=== PATIENT | female | born 1965 | race Caucasian/White ===

== ENCOUNTER 2016-08-01 14:10 | Inpatient (IN) | payer BC ==
[2016-08-01 17:17] VITALS: BMI 32.1
--- NOTE | 2016-08-01 17:27 | HP ---
COWS - Scale Resting Pulse: 1= MO 81-100 Sweatin= Chills/Flushing Restless Observation: 1= Difficult to Sit Still Pupil Size: 0= Normal to Room Light Bone or Joint Aches: 2= Severe Diffuse Aches (MS TREATED WITH ATIVAN PRN) Runny Nose/ Eye Tearin= Runny Nose/Eyes GI Upset > 30mins: 1= Stomach Cramp Tremor Observation: 2= Slight Tremor Visible Yawning Observation: 0= None Anxiety or Irritability: 2=Irritable/Anxious Goose Flesh Skin: 3=Piloerection COWS Score: 15 CIWA Score - CIWA Score Nausea/Vomitin-Mild Nausea/No Vomiting Muscle Tremors: 4-Moderate,w/Arms Extend Anxiety: 4-Mod. Anxious/Guarded Agitation: 4-Moderately Restless Paroxysmal Sweats: 1-Minimal Palms Moist Orientation: 1-Uncertain about Date Tacttile Disturbances: 0-None Auditory Disturbances: 0-None Visual Disturbances: 0-None Headache: 0-None Present CIWA-Ar Total Score: 15 Admission [facility] Chief Complaint: WITHDRAWAL SX Allergies/Adverse Reactions: Allergies Allergy/AdvReac Type Severity Reaction Status Date / Time No Known Allergies Allergy Verified 06/13/16 20:58 History of Present Illness: 51 YEARS OLD FEMALE WITH LONG HISTORY OF ALCOHOL OPIATE NICOTINE DEPENDENCE, HAS M.S AND IBS AND DEPRESSION IS ADMITTED TO DETOX Exam Limitations: No Limitations - Ebola screening Have you traveled outside of the country in the last 21 days: No Have you had contact with anyone from an Ebola affected area: No Have you been sick,other than usual withdrawal symptoms: No Do you have a fever: No - Review of Systems Constitutional: Chills, Changes in sleep, Weight Stable EENT: reports: No Symptoms Reported Respiratory: reports: No Symptoms reported Cardiac: reports: No Symptoms Reported GI: reports: Constipated, Nausea, Poor Fluid Intake, Abdominal cramping : reports: No Symptoms Reported Musculoskeletal: reports: Back Pain, Joint Pain, Muscle Pain, Neck Pain Integumentary: reports: No Symptoms Reported Neuro: reports: Tremors Endocrine: reports: No Symptoms Reported Hematology: reports: No Symptoms Reported Psychiatric: reports: Judgement Intact, Depressed Other Systems: Reviewed and Negative Patient History - Patient Medical History Hx Anemia: No Hx Asthma: No Hx Chronic Obstructive Pulmonary Disease (COPD): No Hx Cancer: No Hx Cardiac Disorders: No Hx Congestive Heart Failure: No Hx Hypertension: No Hx Hypercholesterolemia: No Hx Pacemaker: No HX Cerebrovascular Accident: No Hx Seizures: No Hx Dementia: No Hx Diabetes: No Hx Gastrointestinal Disorders: No Hx Liver Disease: No Hx Genitourinary Disorders: No Hx Sexually Transmitted Disorders: No Hx Renal Disease (ESRD): No Hx Thyroid Disease: No Hx Human Immunodeficiency Virus (HIV): No (negative) Hx Hepatitis C: No (negtive) Hx Depression: Yes Hx Suicide Attempt: No (denies) Hx Bipolar Disorder: No Hx Schizophrenia: No - Patient Surgical History Past Surgical History: Yes Hx Neurologic Surgery: No Hx Cataract Extraction: No Hx Cardiac Surgery: No Hx Lung Surgery: No Hx Breast Surgery: No Hx Breast Biopsy: No Hx Abdominal Surgery: No Hx Appendectomy: No Hx Cholecystectomy: No Hx Genitourinary Surgery: No Hx Section: Yes (x3) Hx Orthopedic Surgery: Yes (s/p l. ankle fracture LEFT FOOT) Hx Hysterectomy: No Other Surgical History: s/p tube ligation. 1986 Anesthesia Reaction: No - PPD History Previous Implant?: Yes Documented Results: Negative w/proof Implanted On Prior [facility] Admission?: Yes Date: 05/16/16 Results: 0 MM PPD to be Administered?: No - Reproductive History Patient is a Female of Child Bearing Age (11 -55 yrs old): Yes Last Menstrual Period: 08/23/14 Patient : No - Smoking Cessation Smoking history: Current every day smoker Have you smoked in the past 12 months: Yes Aproximately how many cigarettes per day: 15 Cigars Per Day: 0 Hx Chewing Tobacco Use: No Initiated information on smoking cessation: Yes 'Breaking Loose' booklet given: 08/01/16 - Substance & Tx. History Hx Alcohol Use: Yes Hx Substance Use: Yes Substance Use Type: Alcohol, Heroin, Opiates, Tranquilizers Hx Substance Use Treatment: Yes - Substances Abused Alcohol Route: Oral Frequency: Daily Amount used: 3 [place] Age of first use: 15 Date of Last Use: 07/31/16 Heroin Route: Inhalation Frequency: Daily Amount used: 100$ Age of first use: 48 Date of Last Use: 07/31/16 Family Disease History - Family Disease History Family Disease History: Other: Father (ESTRANGED) Admission Physical Exam BHS - Vital Signs Vital Signs: Vital Signs - 24 hr 08/01/16 17:10 Temperature 95.5 F L Pulse Rate 98 H Respiratory 18 Rate Blood Pressure 118/86 - Physical General Appearance: Yes: Nourished, Appropriately Dressed, Mild Distress, Tremorous, Irritable, Sweating, Anxious HEENTM: Yes: Hearing grossly Normal, Normal ENT Inspection, Normocephalic, Normal Voice Respiratory: Yes: Chest Non-Tender, Lungs Clear, Normal Breath Sounds, No Respiratory Distress, No Accessory Muscle Use Neck: Yes: Supple, Trachea in good position Breast: Yes: Breasts Symetrical Cardiology: Yes: Regular Rhythm, Regular Rate, S1, S2 Abdominal: Yes: Non Tender, Soft Genitourinary: Yes: Within Normal Limits Back: Yes: Normal Inspection Musculoskeletal: Yes: full range of Motion, Gait Steady, Muscle weakness (MS USE CANE AT HOME PATIENT STATES THAT SHE DOES NOT NEED CANE RECENT X MONTHS) Extremities: Yes: Normal Inspection, Normal Range of Motion, Non-Tender, Tremors Neurological: Yes: Alert, Motor Strength 5/5, Normal Response, Depressed Affect Integumentary: Yes: Warm Lymphatic: Yes: Within Normal Limits - Diagnostic (1) Alcohol dependence with uncomplicated withdrawal Current Visit: Yes Status: Acute (2) Nicotine dependence Current Visit: Yes Status: Acute Qualifiers: Nicotine product type: cigarettes Substance use status: in withdrawal Qualified Code(s): F17.213 - Nicotine dependence, cigarettes, with withdrawal (3) Peripheral neuropathy Current Visit: Yes Status: Acute Qualifiers: Peripheral neuropathy type: polyneuropathy associated with underlying disease Qualified Code(s): G63 - Polyneuropathy in diseases classified elsewhere Comment: NEURONTIN (4) Opioid dependence with withdrawal Current Visit: Yes Status: Acute (5) Multiple sclerosis Current Visit: Yes Status: Acute Comment: FLEXERIL (6) CHF (congestive heart failure) Current Visit: Yes Status: Acute Qualifiers: Congestive heart failure type: combined Congestive heart failure chronicity: chronic Qualified Code(s): I50.42 - Chronic combined systolic (congestive) and diastolic (congestive) heart failure Comment: LASIX (7) IBS (irritable bowel syndrome) Current Visit: Yes Status: Acute Qualifiers: Irritable bowel syndrome type: with constipation Qualified Code(s): K58.9 - Irritable bowel syndrome without diarrhea Comment: LITO Cleared for Admission [facility] - Detox or Rehab [facility] Level of Care: Medically Managed Detox Regimen/Protocol: Methadone/Librium [facility] Breath Alcohol Content Breath Alcohol Content: 0 Urine Pregancy Test - Result Urine Test Results: Negative- NO Line Present Urine Drug Screen - Results Drug Screen Negative: No Urine Drug Screen Results: OPI-Opiates, BZO-Benzodiazepines, MTD-Methadone, OXY- Oxycodone
[2016-08-01] MEDS ORDERED: NICOTINE POLACRILEX 2 MG GUM BUC PRN (17:41)
[2016-08-01] MEDS ORDERED: MAGNESIUM HYDROX 2400MG/30ML ORAL SUSPENSION 30 ML CUP PO PRN (17:41)
[2016-08-01] MEDS ORDERED: MAG HYDROX/AL HYDROX/SIMETH 30 ML UNIT-DOSE CUP PO PRN (17:41)
[2016-08-01] MEDS ORDERED: IBUPROFEN 400 MG TABLET (FP) PO PRN (17:41)
[2016-08-01] MEDS ORDERED: MAGNESIUM CITRATE 300 ML BOTTLE PO PRN (17:41)
[2016-08-01] MEDS ORDERED: MENTHOL/PHENOL 1 EACH UD MM PRN (17:41)
[2016-08-01] MEDS ORDERED: LOPERAMIDE HCL 2 MG CAPSULE PO PRN (17:41)
[2016-08-01] MEDS ORDERED: P-EPHED 60MG/TRIPROLIDI 2.5MG TABLET PO PRN (17:41)
[2016-08-01] MEDS ORDERED: guaiFENesin/D-METHORPHAN HB 10 ML UNIT-DOSE CUPS PO PRN (17:41)
[2016-08-01] MEDS ORDERED: ACETAMINOPHEN 325 MG TABLET (FP) PO PRN (17:41)
[2016-08-01] MEDS ORDERED: METHADONE HCL 10 MG TABLET (FOR DETOX USE ONLY) PO ONE ×2 (18:45→23:00)
--- NOTE | 2016-08-01 19:06 | PN ---
S Progress Note Note: RECEIVED PHARMACY CALL [facility] DOES NOT [facility] PATIENT HAS HER OWN LINZESS PROVIDER ORDERED PATIENT'S OWN LINZESS CONTINUE DETOX
[2016-08-01] MEDS: chlordiazePOXIDE HCL 25 MG CAPSULE PO PRN (19:19)
[2016-08-01] MEDS ORDERED: diphenhydrAMINE HCL 50 MG CAPSULE PO PRN (22:00)
[2016-08-01] MEDS ORDERED: THIAMINE HCL 100 MG TABLET (FP) PO SCH (22:00)
[2016-08-01] MEDS: CYCLOBENZAPRINE HCL 10 MG TABLET (FP) PO PRN (22:07)
[2016-08-01] MEDS: GABAPENTIN 300 MG CAPSULE (FP) PO SCH (22:08)
[2016-08-01] MEDS: chlordiazePOXIDE HCL 25 MG CAPSULE PO SCH (22:08)
[2016-08-01 22:51] LABS: URINE APPEARANCE CLOUDY; URINE BILIRUBIN NEGATIVE (NEGATIVE); URINE BLOOD NEGATIVE (NEGATIVE); URINE COLOR YELLOW; URINE GLUCOSE (UA) NEGATIVE (NEGATIVE); URINE KETONE NEGATIVE (NEGATIVE); URINE LEUK ESTERASE NEGATIVE (NEGATIVE); URINE NITRITE NEGATIVE (NEGATIVE); URINE PROTEIN NEGATIVE (NEGATIVE); URINE UROBILINOGEN NEGATIVE E.U./dl (0.2-1.0)
[2016-08-02] MEDS: chlordiazePOXIDE HCL 25 MG CAPSULE PO SCH ×3 (05:23→17:50)
[2016-08-02] MEDS: GABAPENTIN 300 MG CAPSULE (FP) PO SCH ×2 (05:24→13:05)
[2016-08-02] MEDS ORDERED: BISACODYL 5 MG TABLET.DR (FP) PO ONE (09:24)
[2016-08-02] MEDS ORDERED: NICOTINE 21 MG/24 HOURS TOPICAL PATCH TD SCH (10:00)
[2016-08-02] MEDS ORDERED: PRENATAL VITAMINS W/ FOLIC ACID TABLET (FP) PO SCH (10:00)
[2016-08-02] MEDS ORDERED: FUROSEMIDE 20 MG TABLET (FP) PO SCH (10:00)
[2016-08-02] MEDS ORDERED: PATIENT'S OWN MEDICATION (NON-FORMULARY) (Linaclotide [Linzess] 145 MCG) PO SCH (10:00)
[2016-08-02] MEDS ORDERED: METHADONE HCL 10 MG TABLET (FOR DETOX USE ONLY) PO SCH (10:00)
[2016-08-02] MEDS: CYCLOBENZAPRINE HCL 10 MG TABLET (FP) PO PRN (10:06)
--- NOTE | 2016-08-02 10:11 | PN ---
S CIWA - CIWA Score Nausea/Vomitin Muscle Tremors: 3 Anxiety: 3 Agitation: 3 Paroxysmal Sweats: 1-Minimal Palms Moist Orientation: 0-Oriented Tacttile Disturbances: 1-Very Mild Itch/Numbness Auditory Disturbances: 1-Very Mild Visual Disturbances: 1-Very Mild Sensitivity Headache: 2-Mild CIWA-Ar Total Score: 18 BHS COWS - Scale Resting Pulse: 0= [place] 80 or Below Sweatin= Chills/Flushing Restless Observation: 3= Extraneous Movement Pupil Size: 1= Pupils >than Normal Bone or Joint Aches: 2= Severe Diffuse Aches Runny Nose/ Eye Tearin= Runny Nose/Eyes GI Upset > 30mins: 2= Nausea/Diarrhea Tremor Observation of Outstretched Hands: 2= Slight Tremor Visible Yawning Observation: 1= 1-2x During Session Anxiety or Irritability: 2=Irritable/Anxious Goose Flesh Skin: 0=Smooth Skin COWS Score: 16 S Progress Note (SOAP) Subjective: ALERT,IRRITABLE,ANXIOUS,INTERRUPTED SLEEP,CONSTIPATION,PAIN IN THE BODY AND BACK ,TREMOR Objective: 08/02/16 10:09 Vital Signs Temperature 98.6 F 08/02/16 09:58 Pulse Rate 79 08/02/16 09:58 Respiratory Rate 16 08/02/16 09:58 Blood Pressure 129/76 08/02/16 09:58 O2 Sat by Pulse Oximetry (%) EKG SINUS TACHYCARDIA 103/MIN 08/02/16 10:10 Laboratory Last Values Urine Color Yellow 08/01/16 22:00 Urine Appearance Cloudy 08/01/16 22:00 Urine pH 7.0 (5.0-8.0) 08/01/16 22:00 Ur Specific [place] 1.014 (1.001-1.035) 08/01/16 22:00 Urine Protein Negative (NEGATIVE) 08/01/16 22:00 Urine Glucose (UA) Negative (NEGATIVE) 08/01/16 22:00 Urine Ketones Negative (NEGATIVE) 08/01/16 22:00 Urine Blood Negative (NEGATIVE) 08/01/16 22:00 Urine Nitrite Negative (NEGATIVE) 08/01/16 22:00 Urine Bilirubin Negative (NEGATIVE) 08/01/16 22:00 Urine Urobilinogen Negative E.U./dl (0.2-1.0) 08/01/16 22:00 Ur Leukocyte Esterase Negative (NEGATIVE) 08/01/16 22:00 LABS PENDING Assessment: 08/02/16 10:10 WITHDRAWAL SYMPTOM Plan: CONTINUE DETOX
[2016-08-02 10:49] LABS: MCH 28.4 pg (25.7-33.7); MEAN CELL VOLUME 88.8 fl (80-96); MEAN PLT VOLUME 8.2 fl (7.5-11.1); PLATELET COUNT 246 K/MM3 (134-434); RDW 17.5 % (11.6-15.6); WHITE BLOOD COUNT 5.5 K/mm3 (4.0-10.0)
[2016-08-02 11:07] LABS: ALBUMIN 3.5 g/dl (3.4-5.0); ALK PHOS 108 U/L (45-117); ANION GAP 12 (8-16); BILIRUBIN,TOTAL 0.3 mg/dL (0.2-1.0); CALCIUM 8.9 mg/dL (8.5-10.1); CO2 30 mmol/L (21-32); CREATININE 0.9 mg/dL (0.55-1.02); GLUCOSE,RANDOM 75 mg/dL (74-106); SGOT/AST 31 U/L (15-37); SGPT/ALT 29 U/L (12-78)
[2016-08-02] MEDS: chlordiazePOXIDE HCL 25 MG CAPSULE PO PRN (13:05)
[2016-08-02] MEDS ORDERED: diphenhydrAMINE HCL 25 MG CAPSULE (FP) PO ONE (13:34)
[2016-08-02] MEDS ORDERED: diphenhydrAMINE HCL 25 MG CAPSULE (FP) PO PRN (13:34)
[2016-08-02] MEDS ORDERED: HYDROCORTISONE 1% TOPICAL CREAM 30 GM TUBE TP SCH (13:45)
--- NOTE | 2016-08-02 18:26 | PN ---
[facility] Progress Note Note: PATIENT DID NOT WANT TO COMPLETE TREATMENT,SIGNED RELEASE AMA,SEEN BY COUNSELOR, DID NOT WANT TO WAIT, FOLLOW UP WITH PMD FOR MEDICAL PROBLEM
--- NOTE | 2016-08-02 18:34 | DS ---
[facility] Detox Discharge Summary Admission Date: 08/01/16 Discharge Date: 08/02/16 - History Present History: Alcohol Dependence, Opioid Dependence Additional Comments: PATIENT DID NOT WANT TO COMPLETE TREATMENT,SEEN BY COUNSELOR,DID NOT WANT TO WAIT,SIGNED RELEASE AMA, ADVISE TO SEE PMD FOR MEDICAL PROBLEM AND OWN PSYCHIATRIST Pertinent Past History: MULTIPLE SCLEROSIS HISTORY OF CHF IRRITABLE BOWEL SYNDROME PERIPHERAL NEUROPATHY DEPRESSION CANE AMBULATION - Physical Exam Results Vital Signs: Vital Signs Temperature 97.7 F 08/02/16 14:19 Pulse Rate 105 H 08/02/16 14:19 Respiratory Rate 20 08/02/16 14:19 Blood Pressure 117/71 08/02/16 14:19 O2 Sat by Pulse Oximetry (%) Pertinent Admission Physical Exam Findings: WITHDRAWAL SYMPTOM - Medication Discharge Medications: Ambulatory Orders Duloxetine HCl [Cymbalta -] 60 mg PO DAILY #30 capsule. 05/15/16 Gabapentin [Neurontin -] 800 mg PO TID #90 capsule 05/15/16 Topiramate [Topamax -] 400 mg PO DAILY #30 tablet 05/15/16 Duloxetine HCl [Cymbalta] 60 mg PO DAILY #30 capsule. 06/14/16 Gabapentin [Neurontin -] 800 mg PO TID #90 capsule 06/14/16 Linaclotide [Linzess] 145 mcg PO DAILY 08/01/16 - AMA Did Patient Leave Against Medical Advice: Yes
--- NOTE | 2016-08-02 18:41 | EKG ---
Test Reason : Blood Pressure : / mmHG Vent. Rate : 103 BPM Atrial Rate : 103 BPM P-R Int : 150 ms QRS Dur : 084 ms QT Int : 370 ms P-R-T Axes : 071 008 048 degrees QTc Int : 484 ms SINUS TACHYCARDIA PROLONGED QT WHEN COMPARED WITH ECG OF 13-JUN-2016 16:41, NO SIGNIFICANT CHANGE WAS FOUND Confirmed by GAL SOLANO MD ([id number]) on 08/02/2016 6:40:52 PM Referred By: Confirmed By:GAL SOLANO MD
[2016-08-02 18:44] VITALS: BP 133/78; PULSE 96; TEMP 95.7
[2016-08-02] MEDS ORDERED: chlordiazePOXIDE HCL 25 MG CAPSULE PO SCH (23:00)
[2016-08-03] MEDS ORDERED: METHADONE HCL 5 MG TABLET (FOR DETOX USE ONLY) PO SCH (10:00)
[2016-08-03] MEDS ORDERED: BISACODYL 5 MG TABLET.DR (FP) PO SCH (10:00)
[2016-08-03] MEDS ORDERED: chlordiazePOXIDE 5 MG CAPSULE PO SCH (23:00)
[2016-08-04] MEDS ORDERED: chlordiazePOXIDE HCL 10 MG CAPSULE PO SCH (23:00)
[2016-08-05] MEDS ORDERED: METHADONE HCL 10 MG TABLET (FOR DETOX USE ONLY) PO SCH (10:00)
[2016-08-06] MEDS ORDERED: METHADONE HCL 5 MG TABLET (FOR DETOX USE ONLY) PO SCH (06:00)
== END 2016-08-02 17:45 | disposition left against medical advice (07) | DRG 770 ==
LOC: YASAS 14:10 → Y6N 18:28
PROVIDERS: ADMIT Internal Medicine; ATTEND Internal Medicine
PROC: HZ2ZZZZ Detoxification Services for Substance Abuse Treatment (ICD-10-PCS; principal; 2016-08-02)
DX: F11.23 Opioid dependence with withdrawal (principal); F10.230 Alcohol dependence with withdrawal, uncomplicated; F17.213 Nicotine dependence, cigarettes, with withdrawal; I50.42 Chronic combined systolic (congestive) and diastolic (congestive) heart failure; G63 Polyneuropathy in diseases classified elsewhere; K58.9 Irritable bowel syndrome, unspecified; G35 Multiple sclerosis
CPT/HCPCS: 36415; 80053; 81003; 85027; 86593; 93005; 93010

== ENCOUNTER 2016-12-03 08:18 | Inpatient (IN) | payer BC ==
[2016-12-03 09:21] VITALS: BMI 32.5
--- NOTE | 2016-12-03 12:21 | HP ---
CIWA Score - CIWA Score Nausea/Vomitin Muscle Tremors: 4-Moderate,w/Arms Extend Anxiety: 3 Agitation: 4-Moderately Restless Paroxysmal Sweats: 3 Orientation: 0-Oriented Tacttile Disturbances: 0-None Auditory Disturbances: 0-None Visual Disturbances: 0-None Headache: 0-None Present CIWA-Ar Total Score: 16 Admission ROS BHS - HPI Chief Complaint: I am here to detox off the alcohol and stay clean. Allergies/Adverse Reactions: Allergies Allergy/AdvReac Type Severity Reaction Status Date / Time No Known Allergies Allergy Verified 12/03/16 10:22 History of Present Illness: pt is a 51yr old female with a history of alcohol dependence seeking detox for treatment. pt is also on a MMTP program last dose yesterday with 30mg verification is done. Exam Limitations: No Limitations - Ebola screening Have you traveled outside of the country in the last 21 days: No Have you had contact with anyone from an Ebola affected area: No Have you been sick,other than usual withdrawal symptoms: No - Review of Systems Constitutional: Chills, Diaphoresis, Night Sweats, Changes in sleep EENT: reports: Nose Congestion Respiratory: reports: No Symptoms reported Cardiac: reports: Syncope GI: reports: Constipated, Poor Appetite, Poor Fluid Intake : reports: No Symptoms Reported Musculoskeletal: reports: No Symptoms Reported Integumentary: reports: Flushing, Sweating Neuro: reports: Tingling, Tremors Endocrine: reports: Excessive Sweating, Flushing, Intolerance to Cold, Intolerance to Heat Hematology: reports: No Symptoms Reported Psychiatric: reports: Judgement Intact, Mood/Affect Appropiate, Orientated x3, Agitated, Anxious Other Systems: Reviewed and Negative Patient History - Patient Medical History Hx Anemia: No Hx Asthma: No Hx Chronic Obstructive Pulmonary Disease (COPD): No Hx Cancer: No Hx Cardiac Disorders: No Hx Congestive Heart Failure: No Hx Hypertension: No (l) Hx Hypercholesterolemia: No Hx Pacemaker: No HX Cerebrovascular Accident: No Hx Seizures: Yes (etoh seizure in 09/12) Hx Dementia: No Hx Diabetes: No Hx Gastrointestinal Disorders: No Hx Liver Disease: No Hx Genitourinary Disorders: No Hx Sexually Transmitted Disorders: No Hx Renal Disease (ESRD): No Hx Thyroid Disease: No Hx Human Immunodeficiency Virus (HIV): No (negative) Hx Hepatitis C: No Hx Depression: Yes Hx Suicide Attempt: Yes (Tried to cut wrist in 1993) Hx Bipolar Disorder: No Hx Schizophrenia: No Other Medical History: chronic h/o edema to lower legs lasix 20mg daily. - Patient Surgical History Past Surgical History: Yes Hx Neurologic Surgery: No Hx Cataract Extraction: No Hx Cardiac Surgery: No Hx Lung Surgery: No Hx Breast Surgery: No Hx Breast Biopsy: No Hx Abdominal Surgery: No Hx Appendectomy: No Hx Cholecystectomy: No Hx Genitourinary Surgery: No Hx Section: Yes (x3) Hx Orthopedic Surgery: Yes (s/p l. ankle fracture LEFT FOOT) Hx Hysterectomy: No Other Surgical History: s/p tube ligation. 1985 Anesthesia Reaction: No - PPD History Previous Implant?: Yes Documented Results: Negative w/proof Implanted On Prior [facility] Admission?: Yes Date: 05/16/16 Results: 0 mm PPD to be Administered?: No - Reproductive History Patient is a Female of Child Bearing Age (11 -55 yrs old): No Last Menstrual Period: 08/23/14 Patient : No - Smoking Cessation Smoking history: Current every day smoker Have you smoked in the past 12 months: Yes Aproximately how many cigarettes per day: 15 Cigars Per Day: 0 Hx Chewing Tobacco Use: No Initiated information on smoking cessation: Yes 'Breaking Loose' booklet given: 12/03/16 - Substance & Tx. History Hx Alcohol Use: Yes Hx Substance Use: No Substance Use Type: Alcohol Hx Substance Use Treatment: Yes ([facility] detox 08/2016) - Substances Abused Alcohol Route: Oral Frequency: Daily Amount used: 2 pintsvodka/ 6pk beer Age of first use: 15 Date of Last Use: 12/02/16 Family Disease History - Family Disease History Family Disease History: Other: Grandparent (alcohol), Father (alcohol) Admission Physical Exam BHS - Vital Signs Vital Signs: Vital Signs - 24 hr 12/03/16 09:16 Temperature 98.4 F Pulse Rate 142 H Respiratory 20 Rate Blood Pressure 151/74 - Physical General Appearance: Yes: Appropriately Dressed, Moderate Distress, Obese, Tremorous, Irritable, Sweating, Anxious HEENTM: Yes: Normal Voice, Nasal Congestion Respiratory: Yes: Lungs Clear, Normal Breath Sounds, No Respiratory Distress Neck: Yes: No masses,lesions,Nodules Breast: Yes: Within Normal Limits Cardiology: Yes: Regular Rhythm, Regular Rate, S1, S2 Abdominal: Yes: Normal Bowel Sounds, Non Tender, Soft Genitourinary: Yes: Within Normal Limits Back: Yes: Normal Inspection Musculoskeletal: Yes: full range of Motion Extremities: Yes: Normal Capillary Refill, Normal Inspection, Tremors Neurological: Yes: Fully Oriented, Alert, Normal Response Integumentary: Yes: Normal Color, Diaphoresis Lymphatic: Yes: Within Normal Limits - Diagnostic (1) Alcohol dependence with uncomplicated withdrawal Current Visit: Yes Status: Chronic (2) Nicotine dependence Current Visit: Yes Status: Chronic Qualifiers: Nicotine product type: cigarettes Substance use status: uncomplicated Qualified Code(s): F17.210 - Nicotine dependence, cigarettes, uncomplicated (3) Methadone maintenance therapy patient Current Visit: Yes Status: Chronic Comment: last dose given at [facility] rafi fleming lpn and noemi anglin RN [phone]. dose verified. (4) Constipation Current Visit: Yes Status: Chronic Qualifiers: Constipation type: unspecified constipation type Qualified Code(s): K59.00 - Constipation, unspecified (5) H/O multiple sclerosis Current Visit: No Status: Chronic Cleared for Admission [facility] - Detox or Rehab [facility] Level of Care: Medically Managed Detox Regimen/Protocol: Librium [facility] Breath Alcohol Content Breath Alcohol Content: 0 Urine Pregancy Test - Result Urine Test Results: Negative- NO Line Present Urine Drug Screen - Results Drug Screen Negative: No Urine Drug Screen Results: MTD-Methadone
[2016-12-03] MEDS ORDERED: guaiFENesin/D-METHORPHAN HB 10 ML UNIT-DOSE CUPS PO PRN (12:30)
[2016-12-03] MEDS ORDERED: ACETAMINOPHEN 325 MG TABLET (FP) PO PRN (12:30)
[2016-12-03] MEDS ORDERED: P-EPHED 60MG/TRIPROLIDI 2.5MG TABLET PO PRN (12:30)
[2016-12-03] MEDS ORDERED: LOPERAMIDE HCL 2 MG CAPSULE PO PRN (12:30)
[2016-12-03] MEDS ORDERED: MAGNESIUM HYDROX 2400MG/30ML ORAL SUSPENSION 30 ML CUP PO PRN (12:30)
[2016-12-03] MEDS ORDERED: MAG HYDROX/AL HYDROX/SIMETH 30 ML UNIT-DOSE CUP PO PRN (12:30)
[2016-12-03] MEDS ORDERED: diphenhydrAMINE HCL 50 MG CAPSULE PO PRN (12:30)
[2016-12-03] MEDS ORDERED: MENTHOL/PHENOL 1 EACH UD MM PRN (12:30)
[2016-12-03] MEDS ORDERED: IBUPROFEN 400 MG TABLET (FP) PO PRN (12:30)
[2016-12-03] MEDS ORDERED: MAGNESIUM CITRATE 300 ML BOTTLE PO PRN (12:30)
[2016-12-03] MEDS ORDERED: hydrOXYzine PAMOATE 50 MG CAPSULE (FP) PO PRN (12:30)
[2016-12-03] MEDS ORDERED: METHADONE HCL 10 MG TABLET PO ONE (12:32)
[2016-12-03] MEDS ORDERED: BISACODYL 5 MG TABLET.DR (FP) PO PRN (12:37)
[2016-12-03] MEDS ORDERED: BACLOFEN 10 MG TABLET (FP) PO PRN (12:39)
[2016-12-03] MEDS ORDERED: chlordiazePOXIDE HCL 25 MG CAPSULE PO ONE (12:44)
[2016-12-03 17:22] LABS: URINE APPEARANCE CLEAR; URINE BILIRUBIN NEGATIVE (NEGATIVE); URINE BLOOD NEGATIVE (NEGATIVE); URINE COLOR STRAW; URINE GLUCOSE (UA) NEGATIVE (NEGATIVE); URINE KETONE NEGATIVE (NEGATIVE); URINE NITRITE NEGATIVE (NEGATIVE); URINE PROTEIN NEGATIVE (NEGATIVE); URINE UROBILINOGEN NEGATIVE E.U./dl (0.2-1.0)
[2016-12-03 17:46] LABS: URINE LEUK ESTERASE TRACE (NEGATIVE)
[2016-12-03] MEDS: chlordiazePOXIDE HCL 25 MG CAPSULE PO SCH ×2 (17:51→22:33)
[2016-12-03] MEDS: chlordiazePOXIDE HCL 25 MG CAPSULE PO PRN (18:36)
[2016-12-03] MEDS ORDERED: ONDANSETRON *ODT* 4 MG TABLET SL ONE (19:29)
[2016-12-03] MEDS ORDERED: RANITIDINE HCL 150 MG TABLET (FP) PO ONE (19:32)
[2016-12-03] MEDS: THIAMINE HCL 100 MG TABLET (FP) PO SCH (22:32)
[2016-12-03] MEDS: GABAPENTIN 300 MG CAPSULE (FP) PO SCH (22:32)
[2016-12-04] MEDS: chlordiazePOXIDE HCL 25 MG CAPSULE PO SCH ×4 (06:04→22:45)
[2016-12-04] MEDS: GABAPENTIN 300 MG CAPSULE (FP) PO SCH ×3 (06:04→22:45)
[2016-12-04] MEDS: METHADONE HCL 10 MG TABLET PO SCH (06:19)
--- NOTE | 2016-12-04 09:25 | CONSULT ---
[facility] Psychiatric Consult - Data Date of interview: 12/04/16 Admission source: [facility] Identifying data: This is 51 years old female with psychiatric hospitalization history, history of Bipolar disordesr, MDD, intoxicated with: Alcohol, Opioids and Nicotine Substance Abuse History: - Smoking Cessation. Smoking history: Current every day smoker. Have you smoked in the past 12 months: Yes. Aproximately how many cigarettes per day: 15. Cigars Per Day: 0. Hx Chewing Tobacco Use: No. Initiated information on smoking cessation: Yes. 'Breaking Loose' booklet given : 12/03/16. - Substance & Tx. History. Hx Alcohol Use: Yes. Hx Substance Use : No. Substance Use Type: Alcohol. Hx Substance Use Treatment: Yes ([facility] detox 08/2016). - Substances Abused. Alcohol. Route: Oral. Frequency: Daily. Amount used: 2 pintsvodka/ 6pk beer. Age of first use: 15. Date of Last Use: 12/02/16 Medical History: CHF, IBS, MS history, MMTP history Psychiatric History: Patient reports history of Bipolar disorder, MDD. reprots most recent psychiatrioc admission on 2016 at [facility], reports taking prior to admsision: Cymbalta 60mg poqd. Zoloft 100mg po qhs Physical/Sexual Abuse/Trauma History: Denies Additional Comment: Cymbalta 60mg poqd. Zoloft 100mg po qhs Mental Status Exam - Mental Status Exam Alert and Oriented to: Person Cognitive Function: Fair Patient Appearance: Unkempt Mood: Sad Affect: Flat Patient Behavior: Sedated Speech Pattern: Delayed Voice Loudness: Mildly Soft/Quiet Thought Process: Circumstantial Thought Disorder: Being Controlled Hallucinations: Denies Suicidal Ideation: Denies Homicidal Ideation: Denies Insight/Judgement: Fair Sleep: Difficulty falling asleep Appetite: Fair Muscle strength/Tone: Mild Hypotonicity Gait/Station: Shuffling Additional Comments: Cymbalta 60mg poqd. Zoloft 100mg po qhs Psychiatric Findings - Problem List ([place] 1, 2,3) (1) Alcohol dependence with uncomplicated withdrawal Current Visit: Yes Status: Chronic (2) Methadone maintenance therapy patient Current Visit: Yes Status: Chronic Comment: last dose given at [facility] rafi fleming lpn and noemi anglin RN [phone]. dose verified. (3) Drug-induced mood disorder Current Visit: No Status: Acute (4) Opioid dependence on agonist therapy Current Visit: No Status: Acute (5) MDD (major depressive disorder) Current Visit: No Status: Chronic Comment: By history. - Initial Treatment Plan Initial Treatment Plan: Cymbalta 60mg poqd. Zoloft 100mg po qhs
[2016-12-04 09:54] LABS: MCH 27.4 pg (25.7-33.7); MCHC 32.2 g/dl (32.0-36.0); MEAN CELL VOLUME 85.2 fl (80-96); MEAN PLT VOLUME 8.2 fl (7.5-11.1); PLATELET COUNT 192 K/MM3 (134-434); RDW 17.8 % (11.6-15.6); WHITE BLOOD COUNT 4.3 K/mm3 (4.0-10.0)
[2016-12-04 10:15] LABS: ALK PHOS 139 U/L (45-117); ANION GAP 8 (8-16); BILIRUBIN,TOTAL 0.2 mg/dL (0.2-1.0); CALCIUM 8.8 mg/dL (8.5-10.1); CO2 27 mmol/L (21-32); CREATININE 0.7 mg/dL (0.55-1.02); GLUCOSE,RANDOM 110 mg/dL (74-106); SGOT/AST 809 U/L (15-37); SGPT/ALT 521 U/L (12-78); TOT PROT 6.2 g/dl (6.4-8.2)
--- NOTE | 2016-12-04 10:28 | PN ---
S CIWA - CIWA Score Nausea/Vomitin Muscle Tremors: 3 Anxiety: 3 Agitation: 3 Paroxysmal Sweats: 1-Minimal Palms Moist Orientation: 0-Oriented Tacttile Disturbances: 1-Very Mild Itch/Numbness Auditory Disturbances: 1-Very Mild Visual Disturbances: 1-Very Mild Sensitivity Headache: 2-Mild CIWA-Ar Total Score: 18 S Progress Note (SOAP) Subjective: ALERT,IRRITABLE,ANXIOUS,INTERRUPTED SLEEP,TREMOR,PAIN IN THE BODY Objective: 12/04/16 10:26 Vital Signs Temperature 97.7 F 12/04/16 09:33 Pulse Rate 92 H 12/04/16 09:33 Respiratory Rate 18 12/04/16 09:33 Blood Pressure 142/87 12/04/16 09:33 O2 Sat by Pulse Oximetry (%) EKG SINUS TACHYCARDIA RATE 112 12/04/16 10:27 NO CHEST PAIN,NO SOB,NO DIZZINESS 12/04/16 10:27 Laboratory Last Values WBC 4.3 K/mm3 (4.0-10.0) 12/04/16 07:00 RBC 4.24 M/mm3 (3.60-5.2) 12/04/16 07:00 Hgb 11.6 GM/dL (10.7-15.3) 12/04/16 07:00 Hct 36.1 % (32.4-45.2) 12/04/16 07:00 MCV 85.2 fl (80-96) 12/04/16 07:00 MCHC 32.2 g/dl (32.0-36.0) 12/04/16 07:00 RDW 17.8 % (11.6-15.6) H 12/04/16 07:00 Plt Count 192 K/MM3 (134-434) 12/04/16 07:00 MPV 8.2 fl (7.5-11.1) 12/04/16 07:00 Sodium 141 mmol/L (136-145) 12/04/16 07:00 Potassium 4.5 mmol/L (3.5-5.1) 12/04/16 07:00 Chloride 106 mmol/L (98-107) 12/04/16 07:00 Carbon Dioxide 27 mmol/L (21-32) 12/04/16 07:00 Anion Gap 8 (8-16) 12/04/16 07:00 BUN 19 mg/dL (7-18) H D 12/04/16 07:00 Creatinine 0.7 mg/dL (0.55-1.02) 12/04/16 07:00 Creat Clearance w eGFR > 60 (>60) 12/04/16 07:00 Random Glucose 110 mg/dL (74-106) H D 12/04/16 07:00 Calcium 8.8 mg/dL (8.5-10.1) 12/04/16 07:00 Total Bilirubin 0.2 mg/dL (0.2-1.0) D 12/04/16 07:00 AST 809 U/L (15-37) H D 12/04/16 07:00 ALT 521 U/L (12-78) H D 12/04/16 07:00 Alkaline Phosphatase 139 U/L (45-117) H D 12/04/16 07:00 Total Protein 6.2 g/dl (6.4-8.2) L 12/04/16 07:00 Albumin 3.0 g/dl (3.4-5.0) L 12/04/16 07:00 Urine Color Straw 12/03/16 14:00 Urine Appearance Clear 12/03/16 14:00 Urine pH 6.0 (5.0-8.0) D 12/03/16 14:00 Ur Specific [place] 1.015 (1.005-1.025) 12/03/16 14:00 Urine Protein Negative (NEGATIVE) 12/03/16 14:00 Urine Glucose (UA) Negative (NEGATIVE) 12/03/16 14:00 Urine Ketones Negative (NEGATIVE) 12/03/16 14:00 Urine Blood Negative (NEGATIVE) 12/03/16 14:00 Urine Nitrite Negative (NEGATIVE) 12/03/16 14:00 Urine Bilirubin Negative (NEGATIVE) 12/03/16 14:00 Urine Urobilinogen Negative E.U./dl (0.2-1.0) 12/03/16 14:00 Ur Leukocyte Esterase Trace (NEGATIVE) H 12/03/16 14:00 LABS PENDING Assessment: 12/04/16 10:28 WITHDRAWAL SYMPTOM Plan: CONTINUE DETOX
--- NOTE | 2016-12-04 10:37 | EKG ---
Test Reason : Blood Pressure : / mmHG Vent. Rate : 112 BPM Atrial Rate : 112 BPM P-R Int : 144 ms QRS Dur : 076 ms QT Int : 342 ms P-R-T Axes : 065 -01 036 degrees QTc Int : 466 ms SINUS TACHYCARDIA OTHERWISE NORMAL ECG WHEN COMPARED WITH ECG OF 06-SEP-2016 21:29, VENT. RATE HAS INCREASED BY 55 BPM Confirmed by NELSON RIVERS MD ([id number]) on 12/04/2016 10:37:29 AM Referred By: Mason Phillip Confirmed By:NELSON RIVERS MD
[2016-12-04] MEDS: DULoxetine HCL 60 MG CAPSULE.DR PO SCH (10:39)
[2016-12-04] MEDS: PRENATAL VITAMINS W/ FOLIC ACID TABLET (FP) PO SCH (10:39)
[2016-12-04] MEDS: FUROSEMIDE 20 MG TABLET (FP) PO SCH (10:40)
[2016-12-04] MEDS: NICOTINE 21 MG/24 HOURS TOPICAL PATCH TD SCH (10:42)
[2016-12-04] MEDS: BISACODYL 5 MG TABLET.DR (FP) PO SCH (10:42)
[2016-12-04] MEDS: chlordiazePOXIDE HCL 25 MG CAPSULE PO PRN ×2 (12:23→19:28)
--- NOTE | 2016-12-04 13:07 | PN ---
[facility] Progress Note Note: Laboratory Last Values WBC 4.3 K/mm3 (4.0-10.0) 12/04/16 07:00 RBC 4.24 M/mm3 (3.60-5.2) 12/04/16 07:00 Hgb 11.6 GM/dL (10.7-15.3) 12/04/16 07:00 Hct 36.1 % (32.4-45.2) 12/04/16 07:00 MCV 85.2 fl (80-96) 12/04/16 07:00 MCHC 32.2 g/dl (32.0-36.0) 12/04/16 07:00 RDW 17.8 % (11.6-15.6) H 12/04/16 07:00 Plt Count 192 K/MM3 (134-434) 12/04/16 07:00 MPV 8.2 fl (7.5-11.1) 12/04/16 07:00 Sodium 141 mmol/L (136-145) 12/04/16 07:00 Potassium 4.5 mmol/L (3.5-5.1) 12/04/16 07:00 Chloride 106 mmol/L (98-107) 12/04/16 07:00 Carbon Dioxide 27 mmol/L (21-32) 12/04/16 07:00 Anion Gap 8 (8-16) 12/04/16 07:00 BUN 19 mg/dL (7-18) H D 12/04/16 07:00 Creatinine 0.7 mg/dL (0.55-1.02) 12/04/16 07:00 Creat Clearance w eGFR > 60 (>60) 12/04/16 07:00 Random Glucose 110 mg/dL (74-106) H D 12/04/16 07:00 Calcium 8.8 mg/dL (8.5-10.1) 12/04/16 07:00 Total Bilirubin 0.2 mg/dL (0.2-1.0) D 12/04/16 07:00 AST 809 U/L (15-37) H D 12/04/16 07:00 ALT 521 U/L (12-78) H D 12/04/16 07:00 Alkaline Phosphatase 139 U/L (45-117) H D 12/04/16 07:00 Total Protein 6.2 g/dl (6.4-8.2) L 12/04/16 07:00 Albumin 3.0 g/dl (3.4-5.0) L 12/04/16 07:00 Urine Color Straw 12/03/16 14:00 Urine Appearance Clear 12/03/16 14:00 Urine pH 6.0 (5.0-8.0) D 12/03/16 14:00 Ur Specific [place] 1.015 (1.005-1.025) 12/03/16 14:00 Urine Protein Negative (NEGATIVE) 12/03/16 14:00 Urine Glucose (UA) Negative (NEGATIVE) 12/03/16 14:00 Urine Ketones Negative (NEGATIVE) 12/03/16 14:00 Urine Blood Negative (NEGATIVE) 12/03/16 14:00 Urine Nitrite Negative (NEGATIVE) 12/03/16 14:00 Urine Bilirubin Negative (NEGATIVE) 12/03/16 14:00 Urine Urobilinogen Negative E.U./dl (0.2-1.0) 12/03/16 14:00 Ur Leukocyte Esterase Trace (NEGATIVE) H 12/03/16 14:00 RPR Titer Nonreactive (NONREACTIVE) 12/04/16 07:00 to d/c tylenol repeat cmp,inr in am
[2016-12-04] MEDS: DOCUSATE SODIUM 100 MG CAPSULE (FP) PO SCH ×2 (13:51→22:45)
[2016-12-04] MEDS: SERTRALINE HCL 50 MG TABLET (FP) PO SCH (22:45)
[2016-12-04] MEDS: THIAMINE HCL 100 MG TABLET (FP) PO SCH (22:45)
[2016-12-05] MEDS: chlordiazePOXIDE HCL 25 MG CAPSULE PO SCH ×2 (05:11→10:31)
[2016-12-05] MEDS: METHADONE HCL 10 MG TABLET PO SCH (05:11)
[2016-12-05] MEDS: GABAPENTIN 300 MG CAPSULE (FP) PO SCH ×3 (05:12→22:19)
[2016-12-05] MEDS: DOCUSATE SODIUM 100 MG CAPSULE (FP) PO SCH ×3 (05:12→22:20)
[2016-12-05 09:59] LABS: CALCIUM 9.5 mg/dL (8.5-10.1); INR 0.88 (0.82-1.09); PROTHROMBIN TIME (PATIENT) 9.6 SEC (9.98-11.88)
[2016-12-05 10:04] LABS: ALBUMIN 3.3 g/dl (3.4-5.0); ALK PHOS 155 U/L (45-117); ANION GAP 9 (8-16); BILIRUBIN,TOTAL 0.2 mg/dL (0.2-1.0); CO2 27 mmol/L (21-32); CREATININE 0.8 mg/dL (0.55-1.02); GLUCOSE,RANDOM 151 mg/dL (74-106); SGOT/AST 269 U/L (15-37); TOT PROT 6.8 g/dl (6.4-8.2)
[2016-12-05 10:08] LABS: SGPT/ALT 408 U/L (12-78)
--- NOTE | 2016-12-05 10:13 | PN ---
S CIWA - CIWA Score Nausea/Vomitin Muscle Tremors: 3 Anxiety: 2 Agitation: 3 Paroxysmal Sweats: 2 Orientation: 0-Oriented Tacttile Disturbances: 1-Very Mild Itch/Numbness Auditory Disturbances: 1-Very Mild Visual Disturbances: 1-Very Mild Sensitivity Headache: 2-Mild CIWA-Ar Total Score: 18 S Progress Note (SOAP) Subjective: ALERT,IRRITABLE,ANXIOUS,INTERRUPTED SLEEP,TREMOR Objective: 12/05/16 10:11 Vital Signs Temperature 97.3 F L 12/05/16 10:02 Pulse Rate 87 12/05/16 10:02 Respiratory Rate 18 12/05/16 10:02 Blood Pressure 122/72 12/05/16 10:02 O2 Sat by Pulse Oximetry (%) Laboratory Results - last 24 hr 12/04/16 12/04/16 12/05/16 07:00 07:00 07:00 INR Sodium 141 138 Potassium 4.5 4.4 Chloride 106 102 Carbon Dioxide 27 27 Anion Gap 8 9 BUN 19 H D 18 Creatinine 0.7 0.8 Creat Clearance w eGFR > 60 > 60 Random Glucose 110 H D 151 H D Calcium 8.8 9.5 Total Bilirubin 0.2 D 0.2 AST 809 H D 269 H D ALT 521 H D 408 H D Alkaline Phosphatase 139 H D 155 H Total Protein 6.2 L 6.8 Albumin 3.0 L 3.3 L RPR Titer Nonreactive 12/05/16 07:00 INR 0.88 Sodium Potassium Chloride Carbon Dioxide Anion Gap BUN Creatinine Creat Clearance w eGFR Random Glucose Calcium Total Bilirubin AST ALT Alkaline Phosphatase Total Protein Albumin RPR Titer Assessment: 12/05/16 10:12 WITHDRAWAL SYMPTOM Plan: CONTINUE DETOX
[2016-12-05] MEDS: BISACODYL 5 MG TABLET.DR (FP) PO SCH (10:31)
[2016-12-05] MEDS: PRENATAL VITAMINS W/ FOLIC ACID TABLET (FP) PO SCH (10:31)
[2016-12-05] MEDS: FUROSEMIDE 20 MG TABLET (FP) PO SCH (10:31)
[2016-12-05] MEDS: NICOTINE 21 MG/24 HOURS TOPICAL PATCH TD SCH (10:31)
[2016-12-05] MEDS: DULoxetine HCL 60 MG CAPSULE.DR PO SCH (10:31)
[2016-12-05] MEDS: CYCLOBENZAPRINE HCL 10 MG TABLET (FP) PO PRN ×2 (14:38→22:19)
[2016-12-05] MEDS: chlordiazePOXIDE 5 MG CAPSULE PO SCH ×2 (17:28→22:20)
[2016-12-05] MEDS: THIAMINE HCL 100 MG TABLET (FP) PO SCH (22:19)
[2016-12-05] MEDS: SERTRALINE HCL 50 MG TABLET (FP) PO SCH (22:19)
[2016-12-06] MEDS: METHADONE HCL 10 MG TABLET PO SCH (05:11)
[2016-12-06] MEDS: chlordiazePOXIDE 5 MG CAPSULE PO SCH ×2 (05:11→10:32)
[2016-12-06] MEDS: DOCUSATE SODIUM 100 MG CAPSULE (FP) PO SCH ×3 (05:11→22:49)
[2016-12-06] MEDS: GABAPENTIN 300 MG CAPSULE (FP) PO SCH ×3 (05:11→22:22)
[2016-12-06] MEDS: PRENATAL VITAMINS W/ FOLIC ACID TABLET (FP) PO SCH (10:31)
[2016-12-06] MEDS: NICOTINE 21 MG/24 HOURS TOPICAL PATCH TD SCH (10:32)
[2016-12-06] MEDS: DULoxetine HCL 60 MG CAPSULE.DR PO SCH (10:32)
[2016-12-06] MEDS: FUROSEMIDE 20 MG TABLET (FP) PO SCH (10:32)
[2016-12-06] MEDS: BISACODYL 5 MG TABLET.DR (FP) PO SCH (10:32)
[2016-12-06] MEDS: CYCLOBENZAPRINE HCL 10 MG TABLET (FP) PO PRN (10:33)
--- NOTE | 2016-12-06 11:53 | PN ---
S Progress Note (SOAP) Subjective: ALERT,INTERRUPTED SLEEP,PAIN IN THE BODY Objective: 12/06/16 11:51 Vital Signs Temperature 97.7 F 12/06/16 06:09 Pulse Rate 99 H 12/06/16 06:09 Respiratory Rate 18 12/06/16 06:09 Blood Pressure 107/56 12/06/16 06:09 O2 Sat by Pulse Oximetry (%) Laboratory Last Values WBC 4.3 K/mm3 (4.0-10.0) 12/04/16 07:00 RBC 4.24 M/mm3 (3.60-5.2) 12/04/16 07:00 Hgb 11.6 GM/dL (10.7-15.3) 12/04/16 07:00 Hct 36.1 % (32.4-45.2) 12/04/16 07:00 MCV 85.2 fl (80-96) 12/04/16 07:00 MCHC 32.2 g/dl (32.0-36.0) 12/04/16 07:00 RDW 17.8 % (11.6-15.6) H 12/04/16 07:00 Plt Count 192 K/MM3 (134-434) 12/04/16 07:00 MPV 8.2 fl (7.5-11.1) 12/04/16 07:00 INR 0.88 (0.82-1.09) 12/05/16 07:00 Sodium 138 mmol/L (136-145) 12/05/16 07:00 Potassium 4.4 mmol/L (3.5-5.1) 12/05/16 07:00 Chloride 102 mmol/L (98-107) 12/05/16 07:00 Carbon Dioxide 27 mmol/L (21-32) 12/05/16 07:00 Anion Gap 9 (8-16) 12/05/16 07:00 BUN 18 mg/dL (7-18) 12/05/16 07:00 Creatinine 0.8 mg/dL (0.55-1.02) 12/05/16 07:00 Creat Clearance w eGFR > 60 (>60) 12/05/16 07:00 Random Glucose 151 mg/dL (74-106) H D 12/05/16 07:00 Calcium 9.5 mg/dL (8.5-10.1) 12/05/16 07:00 Total Bilirubin 0.2 mg/dL (0.2-1.0) 12/05/16 07:00 AST 269 U/L (15-37) H D 12/05/16 07:00 ALT 408 U/L (12-78) H D 12/05/16 07:00 Alkaline Phosphatase 155 U/L (45-117) H 12/05/16 07:00 Total Protein 6.8 g/dl (6.4-8.2) 12/05/16 07:00 Albumin 3.3 g/dl (3.4-5.0) L 12/05/16 07:00 Urine Color Straw 12/03/16 14:00 Urine Appearance Clear 12/03/16 14:00 Urine pH 6.0 (5.0-8.0) D 12/03/16 14:00 Ur Specific [place] 1.015 (1.005-1.025) 12/03/16 14:00 Urine Protein Negative (NEGATIVE) 12/03/16 14:00 Urine Glucose (UA) Negative (NEGATIVE) 12/03/16 14:00 Urine Ketones Negative (NEGATIVE) 12/03/16 14:00 Urine Blood Negative (NEGATIVE) 12/03/16 14:00 Urine Nitrite Negative (NEGATIVE) 12/03/16 14:00 Urine Bilirubin Negative (NEGATIVE) 12/03/16 14:00 Urine Urobilinogen Negative E.U./dl (0.2-1.0) 12/03/16 14:00 Ur Leukocyte Esterase Trace (NEGATIVE) H 12/03/16 14:00 RPR Titer Nonreactive (NONREACTIVE) 12/04/16 07:00 Assessment: 12/06/16 11:52 WITHDRAWAL SYMPTOM Plan: CONTINUE DETOX,DISCHARGE IN AM
[2016-12-06] MEDS: chlordiazePOXIDE HCL 10 MG CAPSULE PO SCH ×2 (17:39→22:22)
[2016-12-06] MEDS: SERTRALINE HCL 50 MG TABLET (FP) PO SCH (22:22)
[2016-12-06] MEDS: THIAMINE HCL 100 MG TABLET (FP) PO SCH (22:22)
[2016-12-07] MEDS: METHADONE HCL 10 MG TABLET PO SCH (05:46)
[2016-12-07] MEDS: chlordiazePOXIDE HCL 10 MG CAPSULE PO SCH (05:47)
[2016-12-07] MEDS: GABAPENTIN 300 MG CAPSULE (FP) PO SCH (05:47)
[2016-12-07] MEDS: DOCUSATE SODIUM 100 MG CAPSULE (FP) PO SCH (05:47)
--- NOTE | 2016-12-07 08:39 | PN ---
S Progress Note (SOAP) Subjective: ALERT,NO COMPLAINT Objective: 12/07/16 08:37 Vital Signs Temperature 97.5 F L 12/07/16 06:00 Pulse Rate 99 H 12/07/16 06:00 Respiratory Rate 18 12/07/16 06:00 Blood Pressure 98/71 12/07/16 06:00 O2 Sat by Pulse Oximetry (%) DETOX COMPLETED,NO WITHDRAWAL SYMPTOM 12/07/16 08:38 Assessment: 12/07/16 08:38 NO WITHDRAWAL SYMPTOM Plan: DISCHARGE TODAY,FOLLOW UP WITH AFTER CARE PROGRAM ARRANGEMENT AND PMD FOR MEDICAL PROBLEM
--- NOTE | 2016-12-07 08:45 | DS ---
[facility] Detox Discharge Summary Admission Date: 12/03/16 Discharge Date: 12/07/16 - History Present History: Alcohol Dependence, MMTP Additional Comments: FOLLOW UP WITH AFTER CARE PROGRAM ARRANGEMENT AND PMD FOR MEDICAL PROBLEM AND FOLLOW UP FOR ABNORMAL LIVER ENZYMES PATIENT HAS ALL MEDICATIONS AT HOME Pertinent Past History: NICOTINE DEPENDENCE HISTORY OF MULTIPLE SCLEROSIS CONSTIPATION - Physical Exam Results Vital Signs: Vital Signs Temperature 97.5 F L 12/07/16 06:00 Pulse Rate 99 H 12/07/16 06:00 Respiratory Rate 18 12/07/16 06:00 Blood Pressure 98/71 12/07/16 06:00 O2 Sat by Pulse Oximetry (%) Pertinent Admission Physical Exam Findings: WITHDRAWAL SYMPTOM - Treatment Hospital Course: Detox Protocol Followed, Detoxed Safely, Responded well, Discharged Condition Good, Rehab Referral Accepted Patient has Accepted a Rehab Referral to: [facility] - Medication Discharge Medications: Ambulatory Orders Gabapentin [Neurontin -] 600 mg PO TID 09/06/16 Baclofen 20 mg PO TID PRN 12/03/16 Carisoprodol [Soma (Nf)] 350 mg PO TID PRN 12/03/16 Duloxetine HCl [Cymbalta -] 60 mg PO DAILY #30 capsule. 12/04/16 Sertraline HCl [Zoloft -] 100 mg PO HS #30 tablet 12/04/16 - Diagnosis (1) Alcohol dependence with uncomplicated withdrawal Current Visit: Yes Status: Chronic (2) Constipation Current Visit: Yes Status: Chronic Qualifiers: Constipation type: unspecified constipation type Qualified Code(s): K59.00 - Constipation, unspecified (3) Methadone maintenance therapy patient Current Visit: Yes Status: Chronic (4) Nicotine dependence Current Visit: Yes Status: Chronic Qualifiers: Nicotine product type: cigarettes Substance use status: uncomplicated Qualified Code(s): F17.210 - Nicotine dependence, cigarettes, uncomplicated (5) Multiple sclerosis Current Visit: No Status: Chronic (6) Peripheral neuropathy Current Visit: No Status: Chronic Qualifiers: Peripheral neuropathy type: polyneuropathy associated with underlying disease Qualified Code(s): G63 - Polyneuropathy in diseases classified elsewhere - AMA Did Patient Leave Against Medical Advice: No
[2016-12-07] MEDS: FUROSEMIDE 20 MG TABLET (FP) PO SCH (09:28)
[2016-12-07] MEDS: PRENATAL VITAMINS W/ FOLIC ACID TABLET (FP) PO SCH (09:28)
[2016-12-07] MEDS: DULoxetine HCL 60 MG CAPSULE.DR PO SCH (09:44)
[2016-12-07 09:48] VITALS: BP 99/69; PULSE 120; TEMP 97.3
== END 2016-12-07 09:40 | disposition home or self-care (01) | DRG 773 ==
LOC: YASAS 08:18 → Y6N 11:40
PROVIDERS: ADMIT Internal Medicine; ATTEND Internal Medicine
PROC: HZ2ZZZZ Detoxification Services for Substance Abuse Treatment (ICD-10-PCS; principal; 2016-12-03)
DX: F10.230 Alcohol dependence with withdrawal, uncomplicated (principal); F11.23 Opioid dependence with withdrawal; F17.210 Nicotine dependence, cigarettes, uncomplicated; F19.24 Other psychoactive substance dependence with psychoactive substance-induced mood disorder; F33.9 Major depressive disorder, recurrent, unspecified; G63 Polyneuropathy in diseases classified elsewhere; K59.00 Constipation, unspecified; G35 Multiple sclerosis; Z86.69 Personal history of other diseases of the nervous system and sense organs; R60.9 Edema, unspecified; E66.9 Obesity, unspecified; Z68.32 Body mass index [BMI] 32.0-32.9, adult
CPT/HCPCS: 36415; 80053; 81003; 81015; 85027; 85610; 86593; 93005; 93010; J0475